=== PATIENT | female | born 1965 | race Asian ===

== ENCOUNTER 2016-10-12 10:43 | Emergency (ER) | payer BC, OTHER ==
[2016-10-12 10:53] VITALS: RESP 16; TEMP 98.1
[2016-10-12] MEDS ORDERED: ONDANSETRON 4 MG/2 ML VIAL IVP ONE (10:56)
[2016-10-12] MEDS ORDERED: NS 1,000 ML IV ONE (10:56)
[2016-10-12] MEDS ORDERED: MECLIZINE HCL 25 MG TAB PO ONE (11:20)
--- NOTE | 2016-10-12 11:40 | UCPHY ---
H & P Time Seen by Provider: 10/12/16 11:10 Patient Type: New HPI/ROS: This patient complains of vertigo-room spinning sensation worse with movement over the past 3 days complicated by vomiting over the past 24 hours. She reports some difficulty walking due to the severity of the vertigo when it is at its worse. She has improvement when she lies down and hold still. No other exacerbating factors. She does have some ongoing nausea currently. ROS: No fevers or chills. HEENT: No significant headache. No nasal congestion. Neuro: No visual changes. No focal numbness tingling weakness. Pulmonary: No respiratory symptoms cardiovascular: No heart palpitations or chest pain. No lower extremity swelling. GI: No abdominal pain. 10 point ROS is otherwise negative. Smoking Status: Never smoked Physical Exam: General Appearance: Alert, no distress. Eyes: Pupils equal and round no pallor or injection. ENT, Mouth: Mucous membranes moist. Respiratory: There are no retractions, lungs are clear to auscultation. Cardiovascular: Regular rate and rhythm. Gastrointestinal: Abdomen is soft and nontender, no masses, bowel sounds normal. Neurological: GCS 15. Cerebellar exam: Symmetric rapid hand movements are normal bilaterally. She has onset of vertigo with head movement. Extraocular motions are intact without nystagmus. No focal sensory motor deficits are noted Skin: Warm and dry, no rashes. Musculoskeletal: Neck is supple nontender. Extremities are symmetrical, full range of motion. Psychiatric: Mood and affect normal DIFFERENTIAL DIAGNOSIS: After history and physical exam differential diagnosis was considered for benign positional vertigo, vomiting, dehydration, viral illness Constitutional: Initial Vital Signs Temperature (C) 36.7 C 10/12/16 10:44 Heart Rate 73 10/12/16 10:44 Respiratory Rate 16 10/12/16 10:44 Blood Pressure 119/84 H 10/12/16 10:44 O2 Sat (%) 100 10/12/16 10:44 O2 Delivery Mode Room Air Allergies/Adverse Reactions: No Known Allergies Allergy (Verified 10/12/16 10:53) Home Medications: Medication Instructions Recorded Fluticasone Nasal [Flonase Nasal 2 sprays NASAL DAILY #1 mdi 10/12/16 Patterson (RX)] Meclizine HCl [Meclizine HCl 25 mg 25 mg PO TID PRN #20 tab 10/12/16 (RX,OTC)] Ondansetron Odt [Zofran Odt] 4 - 8 mg PO Q4PRN PRN #4 tab 10/12/16 MDM/Departure - MDM Medications Given: Discontinued Medications Sodium Chloride (Ns) 1,000 mls @ 0 mls/hr IV ONCE ONE PRN Reason: Wide Open Stop: 10/12/16 10:57 Last Admin: 10/12/16 11:05 Dose: 1,000 mls Meclizine HCl (Meclizine Hcl) 25 mg PO EDNOW ONE Stop: 10/12/16 11:21 Last Admin: 10/12/16 11:35 Dose: 25 mg Ondansetron HCl (Zofran) 4 mg IVP EDNOW ONE Stop: 10/12/16 10:57 Last Admin: 10/12/16 11:05 Dose: 4 mg ED Course/Re-evaluation: IV normal saline bolus, Zofran with resolution of nausea Meclizine with resolution a spinning sensation/vertigo. I counseled patient regarding benign positional vertigo. Discussion: Patient with benign positional vertigo complicated by vomiting improved with treatment with no clinical evidence to suggest central vertigo or other complicating factors. - Depart Disposition: Home, Routine, Self-Care Condition: Good Instructions: Acute Nausea and Vomiting (ED), Benign Paroxysmal Positional Vertigo (ED) Additional Instructions: Diagnoses: 1. Benign positional vertigo 2. Vomiting 3. Serous otitis Plan: Flonase steroid nasal spray Meclizine for dizziness if needed Zofran if needed for nausea or vomiting Symptoms should improve over the next 1-5 days. If he have any ongoing symptoms , call Dr. Bee[facility] specialist for further evaluation. Go to the emergency department for any significant worsening of symptoms despite the treatment plan Stand Alone Forms: Work Excuse Prescriptions: Fluticasone Nasal [Flonase Nasal Patterson (RX)] 2 sprays NASAL DAILY #1 mdi Meclizine HCl [Meclizine HCl 25 mg (RX,OTC)] 25 mg PO TID PRN #20 tab PRN Reason: vertigo Ondansetron Odt [Zofran Odt] 4 - 8 mg PO Q4PRN PRN #4 tab PRN Reason: Vomiting Referrals: Morelia Kennedy MD [Primary Care Provider] - As per Instructions José Bee MD [Medical Doctor] - As per Instructions - PQRS PQRS Measurement: NA
[2016-10-12 12:42] VITALS: BP 130/70; PULSE 66; O2SAT 98
== END 2016-10-12 12:25 | disposition home or self-care (01) ==
LOC: CED 10:43
DX: H81.10 Benign paroxysmal vertigo, unspecified ear (principal); R11.2 Nausea with vomiting, unspecified; H65.00 Acute serous otitis media, unspecified ear
CPT/HCPCS: 96361-PO; 96374-PO; 99203-PO; G0463-PO; J2405